=== PATIENT | male | born 1995 | race Caucasian/White ===

== ENCOUNTER 2018-04-28 01:33 | Emergency (ER) | payer OTHER ==
[2018-04-28] MEDS: BACTRIM 160MG/800MG DS TAB PO (02:57)
[2018-04-28] MEDS: NORCO 5/325MG TABLET (BULK FOR ED) PO (02:58)
== END 2018-04-28 03:09 | disposition home or self-care (01) ==
LOC: M ED 01:33
DX: L05.01 Pilonidal cyst with abscess (principal); Z79.899 Other long term (current) drug therapy
CPT/HCPCS: 87186

== ENCOUNTER 2018-04-29 06:08 | Emergency (ER) | payer OTHER | END 2018-04-29 07:28 | disposition home or self-care (01) | LOC: M ED 06:08 | DX: L05.01 Pilonidal cyst with abscess (principal); Z48.00 Encounter for change or removal of nonsurgical wound dressing; Z79.2 Long term (current) use of antibiotics | CPT/HCPCS: 99283 ==

== ENCOUNTER 2018-05-01 06:06 | Emergency (ER) | payer OTHER | END 2018-05-01 06:42 | disposition home or self-care (01) | LOC: M ED 06:06 | DX: L05.01 Pilonidal cyst with abscess (principal) | CPT/HCPCS: 99282 ==

== ENCOUNTER 2018-05-03 06:09 | Emergency (ER) | payer OTHER | END 2018-05-03 07:11 | disposition home or self-care (01) | LOC: M ED 06:09 | DX: Z48.01 Encounter for change or removal of surgical wound dressing (principal); Z79.899 Other long term (current) drug therapy | CPT/HCPCS: 99283 ==

== ENCOUNTER 2018-05-05 06:06 | Emergency (ER) | payer OTHER | END 2018-05-05 07:34 | disposition home or self-care (01) | LOC: M ED 06:06 | DX: Z48.00 Encounter for change or removal of nonsurgical wound dressing (principal); L05.01 Pilonidal cyst with abscess; Z79.2 Long term (current) use of antibiotics | CPT/HCPCS: 99283 ==

== ENCOUNTER → 2018-06-25 | Outpatient (REF) | payer OTHER ==
[~2018-06-25] MED LIST: BACT800T5; BACT800T5 PO; CLEO300C2 PO; IBUP200C25 PO; NORCO,; NORCOTAB PO
== END ==
LOC: M LAB REF 16:15
PROVIDERS: ATTEND Surgery
DX: L05.91 Pilonidal cyst without abscess (principal)

== ENCOUNTER 2018-11-05 05:52 | Day surgery (SDC) | payer OTHER ==
[~2018-11-05] VITALS: Ht 175.3 cm; Wt 80.0 kg
[~2018-11-05 05:52] MED LIST changes: +HYDR-3715 PO; -NORCOTAB PO
[2018-11-05] MEDS ORDERED: LIDOCAINE 1% MDV 20ML VIAL SQ PRN (06:00)
[2018-11-05] MEDS ORDERED: LR 1,000 ML IV ONE (06:00)
[2018-11-05] MEDS ORDERED: LIDOCAINE 2% INJ 100 MG/5 ML SDV (FOR ANES.) As Ordered ONE (06:57)
[2018-11-05] MEDS ORDERED: PROPOFOL 200 MG/20 ML VIAL As Ordered ONE ×2 (06:57→08:36)
[2018-11-05] MEDS ORDERED: KETAMINE HCL 200 MG/20 ML VIAL As Ordered ONE (06:57)
[2018-11-05] MEDS ORDERED: fentaNYL 100 MCG/2 ML INJECTION (J3010) As Ordered ONE (06:58)
[2018-11-05] MEDS ORDERED: MIDAZOLAM INJ 2 MG/2 ML VIAL (J2250) As Ordered ONE (06:58)
[2018-11-05] MEDS ORDERED: dexameTHASONE 4 MG/ML 1ML VIAL (J1100) As Ordered ONE (06:58)
[2018-11-05] MEDS ORDERED: BUPIVACAINE LIPOSOME/PF 1.3% 20ML VIAL (13.3MG/ML)(EXPAREL)(C9290 PER1MG) As Ordered ONE (06:58)
[2018-11-05] MEDS ORDERED: ONDANSETRON 4MG/2ML VIAL (J2405) As Ordered ONE (06:58)
[2018-11-05] MEDS ORDERED: LIDOCAINE 2% JELLY 6 ML SYRINGE As Ordered ONE (08:37)
[2018-11-05] MEDS ORDERED: ceFAZolin 2 GM/D5W 50 ML IV BAG (J0690 PER 500MG) As Ordered ONE (08:53)
[2018-11-05] MEDS ORDERED: ONDANSETRON 4MG/2ML VIAL (J2405) IV PRN (09:45)
[2018-11-05] MEDS ORDERED: LR 1,000 ML IV SCH (09:45)
[2018-11-05] MEDS ORDERED: fentaNYL 100 MCG/2 ML INJECTION (J3010) IV PRN (09:45)
[2018-11-05] MEDS ORDERED: PERCOCET 5MG/325MG TAB PO PRN (09:45)
[2018-11-05] MEDS ORDERED: ACETAMINOPHEN TAB 650MG DOSE (2X325MG) PO PRN (10:00)
[2018-11-05] MEDS ORDERED: NORCO, ANEXSIA 5/325MG TABLET (HYDROcodone/ACETAMINOPHEN) PO PRN (10:00)
[2018-11-05 12:07] VITALS: BP 135/73
--- NOTE | 2018-11-05 19:00 | RO ---
DATE OF PROCEDURE: 11/05/2018 PREOPERATIVE DIAGNOSIS: Persistent pilonidal abscess. 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 PROCEDURE PERFORMED: Pilonidal cystectomy. SURGEON: Lalito Mcclelland MD GAGE DESIGNER: ANESTHESIA: Spinal. INDICATIONS FOR PROCEDURE: Patient is a pleasant 23-year-old man who had undergone incision and drainage of a back in April of 2018. He had had one prior episode of infection in 2017. He has been followed in the wound care center with incomplete healing. He was referred to me and was noted to have a definite pore containing some hairs lower down in the gluteal cleft with a persistent chronic abscess and scarring higher up about 7-8 cm above the pore. He is now for exploration and pilonidal cystectomy. DESCRIPTION OF PROCEDURE: The patient had a spinal anesthetic placed. He was rolled into a prone jackknife position with his pressure points padded. The lower back and buttocks and gluteal cleft were prepped and draped in a sterile fashion. Inspection revealed a small area of acute inflammation in an area of scarring at the top of the gluteal cleft. Lower down in the gluteal cleft, there was an approximately 2-3 mm depressed pit or pore from which at least one hair protruded. Initially I probed the area of the acute inflammation and there was clearly a small abscess that was opened. The tract extended at least a centimeter superiorly and slightly to the right. There was some dense scar tissue around this chronic abscess. I elected to began by excising the pore inferiorly. The skin was incised with a small elliptical excision and as this was dissected free, it was clear that there was a definite tract extending in the subcutaneous tissues superiorly along the gluteal cleft. The skin was incised and this tract was followed, following this up into some dense scar tissue about midway between this for and the abscess. The tract was transected. There was not a definite lumen. It may be that this was all scarred shut. The abscess was then excised as a slightly oblique longitudinally oriented ellipse, taking much of the surrounding scar tissue from his several months of wound care with the small over (dictation cut off). This left a small bridge of tissue which appeared to be quite thickened and scarred between the inferior and the superior excision, and I felt it would be best to excise this ridge of scar tissue as well and this was accomplished. This resulted in an approximately 9 cm open wound. The skin edges were tailored slightly to excise some thickened scar in the mid and superior portions of this. I then elected to undermine the deep fascia slightly toward the top of the wound and several approximating sutures of #3-0 Vicryl were placed to close the deep fascia in this area and approximate the wound edges somewhat. The wound was lined by nice healthy tissue. Hemostasis was ensured with the electrocautery. 30 mL of a mix of Exparel and saline were infiltrated completely around the wound. Final inspection revealed excellent hemostasis. The wound was filled with saline-moistened gauze and a bulky bandage was applied. The patient tolerated the procedure well without apparent complication. He was rolled back onto the stretcher in a supine position and transported to the recovery room.
== END 2018-11-05 12:15 | disposition home or self-care (01) ==
LOC: M SDC 05:52
PROVIDERS: ATTEND Surgery
DX: L05.01 Pilonidal cyst with abscess (principal)
CPT/HCPCS: 11771; 88304; C9290; J0690; J1100; J2250; J2405; J3010

== ENCOUNTER 2018-11-06 05:27 | Emergency (ER) | payer OTHER ==
[~2018-11-06] VITALS: Ht 175.3 cm; Wt 81.8 kg
[2018-11-06 06:37] VITALS: BP 145/91
== END 2018-11-06 06:38 | disposition home or self-care (01) ==
LOC: M ED 05:27
DX: Z48.01 Encounter for change or removal of surgical wound dressing (principal); L05.91 Pilonidal cyst without abscess; Z98.890 Other specified postprocedural states